=== PATIENT | female | born 1960 | race Hispanic/Latino ===

== ENCOUNTER 2018-02-08 13:25 | Outpatient (CLI) | payer OTHER, SELFPAY ==
--- NOTE | 2018-02-09 16:41 | PFT ---
PATIENT HISTORY: HEIGHT: 66 IN WEIGHT: 147 SMOKER: NO HOW LONG: PACKS PER DAY PRODUCTIVE COUGH: LUNG DISEASE: PHYSICIAN INTERPRETATION FINAL REPORT: FEV1 is normal, both pre and post-bronchodilator FVC is normal. Mid flows are normal. Lung volumes are normal. IMPRESSION: Overall, this is a normal study. There is no evidence of extrathoracic airway obstruction on flow volume loop Project Leader: Wind Up Operator: MAJOR CORLEY
== END 2018-02-08 13:26 | disposition home or self-care (01) ==
LOC: CP 13:25
PROVIDERS: ATTEND Internal Medicine
DX: R06.00 Dyspnea, unspecified (principal)
CPT/HCPCS: 94060; 94727

== ENCOUNTER 2024-02-20 15:47 | Outpatient (CLI) | payer OTHER | END 2024-02-20 15:48 | disposition home or self-care (01) | LOC: BICMAMMO 15:47 | PROVIDERS: ATTEND Nurse Practitioner Family | DX: Z12.31 Encounter for screening mammogram for malignant neoplasm of breast (principal) | CPT/HCPCS: 77063; 77067 ==

== ENCOUNTER 2025-01-18 15:27 | Emergency (ER) | payer OTHER ==
[2025-01-18] MEDS ORDERED: Famotidine 20 MG TAB ONE (15:56)
[2025-01-18] MEDS ORDERED: Pantoprazole 40 MG DR.TAB ONE (15:56)
== END 2025-01-18 17:55 | disposition home or self-care (01) ==
LOC: ERS 15:27
DX: T65.891A Toxic effect of other specified substances, accidental (unintentional), initial encounter (principal); R03.0 Elevated blood-pressure reading, without diagnosis of hypertension; Z55.6 Problems related to health literacy
CPT/HCPCS: 93005; 99283